=== PATIENT | male | born 1955 | race Caucasian/White ===

== ENCOUNTER → 2021-02-12 11:14 | Outpatient (CLI) | payer OTHER, SELFPAY ==
--- NOTE | ~2021-02-12 | CT_ITS ---
EXAMINATION:CT lung screening DATE: 02/12/2021 11:41 INDICATION: Personal history of tobacco dependence. Current smoker with 40 pack year history. TECHNIQUE: Computed tomography (CT) of the chest was performed without intravenous contrast. Automate d exposure control and iterative reconstruction technique were employed. The dose-length product (DLP ) was 322.62 mGy-cm. COMPARISON: CT abdomen and pelvis 07/11/2016 FINDINGS: Calcified bilateral lung nodules are consistent with old granulomatous disease. There are 3 mm and 4 mm nodules at right major fissure. There is a 2 mm nodule in left lower lobe. No pleural ef fusion. The heart size is normal. There are coronary artery calcifications. No pericardial effusion. Calcifications in the spleen are consistent with old granulomatous disease. There is a 2.4 cm mass in left adrenal gland measuring soft tissue attenuation, stable from 07/11/2016, likely an adenoma. Ther e is mild thoracic spondylosis. IMPRESSION: 1. Lung-RADS category 2: Benign appearance or behavior. Continue annual screening with noncontrast lo w-dose chest CT in 12 months. Reviewed, dictated and finalized at location A. IMPRESSION: 1. Lung-RADS category 2: Benign appearance or behavior. Continue annual screeni ng with noncontrast low-dose chest CT in 12 months.
== END ==
PROVIDERS: PCP Internal Medicine; Visit Provider Internal Medicine
DX: Z87.891 Personal history of nicotine dependence (principal)
CPT/HCPCS: 71271

== ENCOUNTER 2021-12-02 07:20 | Outpatient (RCR) | payer OTHER, SELFPAY ==
[2021-12-02] MEDS: diphenhydrAMINE HCl CAP 25 MG CAPSULE PO (08:07)
[2021-12-02] MEDS: FAMOTIDINE 20 MG TABLET PO (08:07)
[2021-12-02] MEDS: ACETAMINOPHEN 325 MG TABLET 650 MG PO (08:07)
[2021-12-02 08:10] VITALS: BP 157/56; PULSE 55; RESP 20; TEMP 36.5; O2SAT 97
[2021-12-02 09:27] VITALS: BP 160/60; PULSE 50; O2SAT 99
== END 2021-12-02 17:00 ==
LOC: AMCINF 07:20
PROVIDERS: PCP Internal Medicine; Referring Provider Internal Medicine; Visit Provider Internal Medicine Hematology & Oncology
DX: U07.1 COVID-19 (principal); I10 Essential (primary) hypertension; E11.9 Type 2 diabetes mellitus without complications
CPT/HCPCS: A9270; M0243; Q0244

== ENCOUNTER 2022-05-26 09:28 | Outpatient (CLI) | payer MEDICARE, SELFPAY ==
--- NOTE | ~2022-05-26 | CT_ITS ---
EXAMINATION: CT lung screening DATE: 05/26/2022 09:59 INDICATION: Personal history of nicotine dependence, current smoker with 45 pack year history TECHNIQUE: Computed tomography (CT) of the chest was performed without intravenous contrast. The dose -length product (DLP) was 237.90 mGy-cm. Automated exposure control and iterative reconstruction tech [employer] were employed. COMPARISON: 02/12/2021 FINDINGS: There is a stable 2 mm nodule of the right upper lobe. There are stable 3 mm and 4 mm nodul es of the right major fissure. There is a stable 3 mm nodule of the left lower lobe. Calcified pulmon éhctor nodules are consistent with old granulomatous disease. The lungs are free of acute opacities. No pleural effusion or pneumothorax. No pathologically enlarged thoracic lymph nodes are identified. The heart size is normal. Calcified coronary artery atherosclerosis is noted. A stable 2.5 cm left adren al mass likely represents an adenoma. There is mild thoracic spondylosis. IMPRESSION: 1. Lung-RADS category 2: Benign appearance or behavior. Continue annual screening with noncontrast lo w-dose chest CT in 12 months. Reviewed, dictated and finalized at location F. IMPRESSION: 1. Lung-RADS category 2: Benign appearance or behavior. Continue annual screeni ng with noncontrast low-dose chest CT in 12 months.
== END 2022-05-26 09:29 | disposition home or self-care (01) ==
PROVIDERS: PCP Internal Medicine; Visit Provider Internal Medicine
DX: Z12.2 Encounter for screening for malignant neoplasm of respiratory organs (principal); Z87.891 Personal history of nicotine dependence
CPT/HCPCS: 71271

== ENCOUNTER 2024-05-07 11:24 | Outpatient (CLI) | payer MEDICARE, SELFPAY ==
--- NOTE | ~2024-05-07 | CT_ITS ---
CT Scan of the Chest without Contrast: Clinical Indication: Lung cancer screening, nicotine dependence Technique: Contiguous sections were acquired throughout the chest without intravenous contrast. Dose reduction technique was used on this scan by utilizing automated exposure control and iterative recon struction technique. The dose-length product (DLP) was 214.05 mGy-cm. COMPARISON: 05/26/2022 Findings: There is no evidence of any significant mediastinal, hilar or axillary lymphadenopathy. Coronary katy ry calcifications are present. There is no evidence of pleural or pericardial effusion. Stable calcified granuloma superior segment right lower lobe. Images through the upper abdomen reveal stable partially imaged left adrenal nodule. Impression: Lung RADS 2: Benign appearance. 12 month follow-up screening CT advised. Reviewed, dictated and finalized at location . Impression: Lung RADS 2: Benign appearance. 12 month follow-up screening CT advised.
== END 2024-05-07 11:25 ==
LOC: MICIMG 11:25
PROVIDERS: PCP Nurse Practitioner Family; Visit Provider Nurse Practitioner Family
DX: Z12.2 Encounter for screening for malignant neoplasm of respiratory organs (principal); Z87.891 Personal history of nicotine dependence
CPT/HCPCS: 71271

== ENCOUNTER 2025-02-12 11:26 | Emergency (ER) | payer MEDICARE, SELFPAY ==
[2025-02-12 11:44] VITALS: BP 205/77; PULSE 52; RESP 16; TEMP 36.4; O2SAT 100
--- OUTSIDE RECORDS SUMMARY | 2025-02-12 13:23 | XMS_ITS | Referral Summary ---
Author Organization [facility] [address] Address [address] [place] [address] Care Team Providers Care Police Cadet Name Role Phone Unknown, Notinfile Primary Care Provider Unavail able Encounters Date Type Department Care Team Description 02/12/2025 10:45 AM CDT Office Visit [facility] at [address] [phone] Charmaine Mckeon NP Abdominal pain (Primary Dx); Abdominal mass, unspecified abdominal location; Nausea vomiting and diarrhea from Last 3 Months Allergies No known active allergies Medications metFORMIN (GLUCOPHAGE) 1,000 mg tablet Take 1 tablet (1,000 mg total) by mouth 01/06/2025 Active simvastatin (ZOCOR) 40 mg tablet Take 1 tablet (40 mg total) by mouth daily 11/06/2024 Active tamsulosin (FLOMAX) 0.4 mg extended release capsule Take 1 capsule (0.4 mg total) by mouth daily 02/05/2025 Active valsartan (DIOVAN) 320 mg tablet Take 1 tablet (320 mg total) by mouth daily 11/06/2024 Active atenoloL (TENORMIN) 50 mg tablet Take 1 tablet (50 mg total) by mouth daily 02/10/2025 Active Active Problems No known active problems Social History Tobacco Use Types Packs/Day Years Used Date Smoking Tobacco: Never Assessed Personal Safety Answer Date Recorded Getting School Help Needed Not on file 02/10 Sex and Gender Information Value Date Recorded Sex Assigned at Not on file Legal Sex Male 11:00 AM CDT Gender Identity Not on file Sexual Orientation Not on file Last Filed Vital Signs Vital Sign Reading Time Taken Comments Blood Pressure 188/84 02/12/2025 10:44 AM CDT Pulse 54 02/12/2025 10:44 AM CDT Temperature 36.6 C (97.8 F) 02/12/2025 10:44 AM CDT Respiratory Rate 24 02/12/2025 10:44 AM CDT Oxygen Saturation 98% 02/12/2025 10:44 AM CDT Inhaled Oxygen Concentration - - Weight 104.8 kg (231 lb) 02/12/2025 10:44 AM CDT Height - - Body Mass Index - - Plan of Treatment Not on file [facility] Care Teams Police Cadet Relationship Specialty Start Date End Date Unknown, Notinfile PCP - General 02/12/25
--- OUTSIDE RECORDS SUMMARY | 2025-02-12 13:23 | XMS_ITS | Clinical Summary ---
Author Organization [facility] [address] Address [address] [place] [address] Care Team Providers Care Identification Clerk Name Role Phone Unknown, Notinfile Primary Care Provider Unavail able Allergies No known active allergies Medications metFORMIN [...] Active Active Problems No known active problems Encounters Date Type Department Care Team Description 02/12/2025 10:45 AM CDT Office Visit [facility] at [address] [phone] Charmaine Mckeon NP Abdominal pain (Primary Dx); Abdominal mass, unspecified abdominal location; Nausea vomiting and diarrhea from Last 3 Months Social History Tobacco Use Types Packs/Day Years [...] Mass Index - - Plan of Treatment Health Maintenance Due Date Last Done Comments Colon Cancer Screening-Colonoscopy 1956 Depression Screening 1956 Fall Risk Assessment 1956 Hepatitis C Screening 1956 Prostate Cancer Screening-PSA 1956 Hepatitis B Screening 1974 Abdominal Aortic Aneurysm (A AA) Screen 2021 Well Visit 65+ 2021 Pneumococcal vaccine 65+ (2 of 2 - PCV) 04/05/2024 04/05/2023 Influenza Vaccine (#1) 2024 0, 08/21/2019, 08/22/2018, Additional history exists DTaP/Tdap/Td Vaccine (2 - Td or Tdap) 04/23/2034 04/23/2024 Zoster Vaccine Completed 04/07/2022, 02/08/2022 Insurance [facility] Care Teams Identification Clerk Relationship Specialty Start Date End Date Unknown, Notinfile PCP - General 02/12/25
--- OUTSIDE RECORDS SUMMARY | 2025-02-12 13:23 | XMS_ITS | Encounter Summary ---
Author Organization [facility] Address [address] [place] [address] Care Team Providers Care Assessment Clinician Name Role Phone Unknown, Notinfile Primary Care Provider Unavail able Reason for Visit * Reason Comments Vomiting Reports he can't eat without vomiting, abdominal pain across lower abdomen, nausea, x 6 weeks. Reports he stopped his jardiance 2 months ago Encounter Details Date Type Department Care Team (Late st Contact Info) Description 02/12/2025 10:45 AM CDT Office Visit [facility] at [place] [id number] [place] [phone] Charmaine Mckeon NP [address] [place] [address] [address] [place], [place] [id number] Abdominal pain (Primary Dx); Abdominal mass, unspecified abdominal location; Nausea vomiting and diarrhea Social History Tobacco Use Types Packs/Day Years Used Date Smoking Tobacco: Never Assessed Personal Safety Answer Date Recorded Getting School Help Needed Not on file 02/10 Sex and Gender Information Value Date Recorded Sex Assigned at Not on file Legal Sex Male 11:00 AM CDT Gender Identity Not on file Sexual Orientation Not on file documented as of this encounter Last Filed Vital Signs Vital Sign Reading [...] - - Body Mass Index - - documented in this encounter Patient Instructions * Patient Instructions* Charmaine Mckeon NP - 02/12/2025 10:45 AM CDT Patient presented today with complaints of abdominal pain and right low back pain x 2 weeks. Patient reports he has not been keeping down food or fluids x 2 weeks. Has had decreased bowel movements and urination. Patient has a palpable mass to the lower mid abdomen. History of hernia repair 5 yearsago. documented in this encounter Plan of Treatment Not on file documented as of this encounter Visit Diagnoses Diagnosis Abdominal pain- Primary Abdominal pain, unspecified site Abdominal mass, unspecified abdominal location Nausea vomiting and diarrhea documented in this encounter Historical Medications * This list may reflect changes made after this encounter. atenoloL (TENORMIN) 50 mg tablet Take 1 tablet (50 mg total) by mouth daily 02/10/2025 valsartan (DIOVAN) 320 mg tablet Take 1 tablet (320 mg total) by mouth daily 11/06/2024 tamsulosin (FLOMAX) 0.4 mg extended release capsule Take 1 capsule (0.4 mg total) by mouth daily 02/05/2025 simvastatin (ZOCOR) 40 mg tablet Take 1 tablet (40 mg total) by mouth daily 11/06/2024 metFORMIN (GLUCOPHAGE) 1,000 mg tablet Take 1 tablet (1,000 mg total) by mouth 01/06/2025 added in this encounter Care Teams Assessment Clinician Relationship Specialty Start Date End Date Unknown, Notinfile PCP - General 02/12/25 documented as of this encounter
[2025-02-12 13:26] LABS: Basophils Percent Auto 0.4 % (0.2-1.2); Eosinophils Absolute Auto 0.1 K/mm3 (0-0.3); Eosinophils Percent Auto 1.4 % (0-4.4); Hematocrit 33.9 % (42.0-52.0); Hemoglobin 11.1 g/dL (14.0-18.0); Immature Granulocyte Absolute 0.04 K/mm3 (0.00-0.031); Immature Granulocyte Percent A 0.4 % (0-0.5); Lymphocytes Absolute Auto 0.79 K/mm3 (0.9-3.2); Lymphocytes Percent Auto 7.9 % (18.3-44.2); Mean Corpuscular HGB Conc 32.7 g/dl (32-36); Mean Corpuscular Hemoglobin 31.7 pg (26-34); Mean Corpuscular Volume 96.9 fl (80-100); Mean Platelet Volume 10.7 fl (7.4-10.4); Monocytes Absolute Auto 0.6 K/mm3 (0.1-0.6); Monocytes Percent Auto 6.3 % (2.6-8.5); Neutrophils Absolute Auto 8.4 K/mm3 (1.3-6.7); Neutrophils Percent Auto 83.6 % (45.5-73.1); Platelet Count Result 282 k/mm3 (150-375); White Blood Count 10.1 K/mm3 (4.5-10.0)
[2025-02-12 13:42] LABS: Add Urine Microscopic? YES; Alanine Aminotransferase 21 U/L (6-50); Albumin Level 3.9 g/dL (3.5-5.1); Alkaline Phosphatase 65 U/L (38-126); Anion Gap 13 mmol/L (4-12); Appearance Urine Clear (Clear); Aspartate Amino Transferase 24 U/L (17-59); Bacteria Urine None Seen /hpf; Bilirubin Urine Negative (Negative); Bilirubin,Total 0.3 mg/dL (0.2-1.3); Blood Urea Nitrogen 110 mg/dL (9-20); Blood Urine Negative (Negative); Calcium 9.2 mg/dL (8.4-10.2); Carbon Dioxide 19 mmol/L (22-30); Chloride 106 mmol/L (98-107); Color Urine Yellow (Yellow); Estimated CRCL calculation 9 ml/min; Estimated Glomerular Filt Rate 6; Glucose 126 mg/dL (65-110); Glucose Urine UA Negative (Negative); Ketones Urine Negative (Negative); Leukocyte Esterase Ur Negative LEU/UL (Negative); Lipase 87 U/L (23-300); Nitrate Urine Negative (Negative); Non Pathogenic Casts 0-2; Potassium 5.7 mmol/L (3.4-5.0); Protein Urine Trace mg/dL (Negative); RBC Urine 0-2 /hpf (0-2); Sodium 138 mmol/L (137-145); Specific Grav Ur 1.009 (1.001-1.035); Squamous Epithelial Cell Urine None Seen /hpf (Few); Urobilinogen Urine 0.2 mg/dL (<2.0); WBC Urine 0-5 /hpf (0-3)
[2025-02-12 14:30] VITALS: RESP 18; O2SAT 96
--- OUTSIDE RECORDS SUMMARY | 2025-02-12 17:27 | XMS_ITS | Clinical Summary ---
Author Organization [facility] [address] Address [address] [place] [address] Care Team Providers Care Health Services Rn Name Role Phone Unknown, Notinfile Primary Care [...] Description 02/12/2025 10:45 AM CDT Office Visit [facility] at [address] [phone] Charmaine Mckeon NP Abdominal pain (Primary Dx); Abdominal mass, unspecified abdominal location; Nausea vomiting and diarrhea from Last 3 Months Social History Tobacco Use Types Packs/Day Years Used Date Smoking Tobacco: Never Assessed Sex and Gender Information Value Date Recorded [...] PCV) 04/05/2024 04/05/2023 Influenza Vaccine (#1) 2024 , 08/21/2019, 08/22/2018, Additional history exists DTaP/Tdap/Td Vaccine (2 - Td or Tdap) 04/23/2034 04/23/2024 Zoster Vaccine Completed 04/07/2022, 02/08/2022 Insurance [facility] [employer] Care Teams Health Services Rn Relationship Specialty Start Date End Date Unknown, Notinfile PCP - General 02/12/25
--- OUTSIDE RECORDS SUMMARY | 2025-02-12 17:27 | XMS_ITS | Encounter Summary ---
Author Organization [facility] Address [address] [place] [address] Care Team Providers Care Executive Search Consultant Name Role Phone Unknown, Notinfile Primary Care Provider Unavail able Reason for Visit * Reason Comments Vomiting Reports he can't eat without vomiting, abdominal pain across lower abdomen, nausea, x 6 weeks. Reports he stopped his jardiance 2 months ago Encounter Details Date Type Department Care Team (Late st Contact Info) Description 02/12/2025 10:45 AM CDT Office Visit [facility] at [place] [address] [place] [phone] Charmaine Mckeon EMPLOYMENT CASE MANAGER [address] [place] [address] [address] [place], [place] [phone] Abdominal pain (Primary Dx); Abdominal mass, unspecified [...] 01/06/2025 added in this encounter Care Teams Executive Search Consultant Relationship Specialty Start Date End Date Unknown, Notinfile PCP - General 02/12/25 documented as of this encounter
--- OUTSIDE RECORDS SUMMARY | 2025-02-12 17:27 | XMS_ITS | Referral Summary ---
Author Organization [facility] [address] Address [address] [place] [address] Care Team Providers Care University Dean Name Role Phone Unknown, Notinfile Primary Care Provider Unavail able Encounters Date Type Department Care Team Description 02/12/2025 10:45 AM CDT Office Visit [facility] at [address] [phone] Charmaine Mckeon NP Abdominal pain [...] Plan of Treatment Not on file Insurance [facility] [employer] Care Teams University Dean Relationship Specialty Start Date End Date Unknown, Notinfile PCP - General 02/12/25
--- NOTE | 2025-02-12 17:37 | ED.GENADULT ---
HPI - General Adult General Chief complaint: Unspecified Stated complaint: NON SPECIFIC Time Seen by Provider: 02/12/25 16:42 History of Present Illness HPI narrative: Patient eloped from the emergency department. Related Data Home Medications ?Medication ?Instructions ?Recorded ?Confirmed ?Last Taken ?Type aspirin 325 mg tablet 325 mg PO ONCE 01/07/20 11/04/24 Unknown History Allergies Allergy/AdvReac Type Severity Reaction Status Date / Time No Known Allergies Allergy Verified 11/04/24 09:19 [facility] Past Medical History Medical History Benign paroxysmal positional vertigo Diabetes mellitus Elevated glucose Elevated PSA Essential (primary) hypertension (06/24/19) Hyperlipidemia Hypotension Surgical History Surgical History H/O hand surgery H/O inguinal hernia repair Family History Family History Mother Patient's mother is in good health Sibling Family history of diabetes mellitus in first degree relative Diabetes mellitus Father Family history of heart disease in male family member before age 55 Family history of cardiovascular disease Other Hypertension Social History Social History Smoking packs per day: 1 Smoking cigarettes per day: 20.0 Smoking status: Current every day smoker (no interest in quitting) Tobacco type: cigarettes Second hand tobacco smoke exposure: Yes Alcohol intake: current Alcohol use details: social Substance use: never Substance use type: does not use Do You Feel Safe in your Home?: Yes Lack of Transportation: No Lack of Food: Never True Current Housing: I Have Housing Concerned About Future Housing: No Difficulty Paying Gas/Electric Bills: No Difficulty Paying for Meds: No Currently Unemployed: No Education: Master's Degree or Higher Difficulty w/ Childcare or Family Care: No Living arrangements: alone Occupation/Education: retired Gender identity (if verbalized by the patient): Male Spiritual care concerns: No Agree to blood products: Yes Course Vital Signs Vital signs: Vital Signs Temperature 97.6 F 02/12/25 11:44 Pulse Rate 52 L 02/12/25 11:44 Respiratory Rate 16 02/12/25 11:44 Blood Pressure 205/77 H 02/12/25 11:44 Pulse Oximetry 100 02/12/25 11:44 Oxygen Delivery Room Air 02/12/25 11:44 Temperature 97.6 F 02/12/25 11:44 Pulse Rate 52 L 02/12/25 11:44 Respiratory Rate 18 02/12/25 14:30 Blood Pressure 205/77 H 02/12/25 11:44 Pulse Oximetry 96 02/12/25 14:30 Oxygen Delivery Room Air 02/12/25 11:44 Medical Decision Making Vital Signs Vital Signs: Vital Signs Temperature 97.6 F 02/12/25 11:44 Pulse Rate 52 L 02/12/25 11:44 Respiratory Rate 16 02/12/25 11:44 Blood Pressure 205/77 H 02/12/25 11:44 Pulse Oximetry 100 02/12/25 11:44 Oxygen Delivery Room Air 02/12/25 11:44 Temperature 97.6 F 02/12/25 11:44 Pulse Rate 52 L 02/12/25 11:44 Respiratory Rate 18 02/12/25 14:30 Blood Pressure 205/77 H 02/12/25 11:44 Pulse Oximetry 96 02/12/25 14:30 Oxygen Delivery Room Air 02/12/25 11:44 Lab Data 02/12/25 13:14 02/12/25 13:14 Labs: Lab Results 02/12/25 Range/Units 13:14 WBC 10.1 H (4.5-10.0) K/mm3 RBC 3.50 L (4.6-6.20) M/mm3 Hgb 11.1 L (14.0-18.0) g/dL Hct 33.9 L (42.0-52.0) % MCV 96.9 (80-100) fl MCH 31.7 (26-34) pg MCHC 32.7 (32-36) g/dl RDW 15.0 H (11.5-14.5) % Plt Count 282 (150-375) k/mm3 MPV 10.7 H (7.4-10.4) fl Immature Gran % (Auto) 0.4 (0-0.5) % Neut % (Auto) 83.6 H (45.5-73.1) % Lymph % (Auto) 7.9 L (18.3-44.2) % Garfield % (Auto) 6.3 (2.6-8.5) % Eos % (Auto) 1.4 (0-4.4) % Baso % (Auto) 0.4 (0.2-1.2) % Lymph # (Auto) 0.79 L (0.9-3.2) K/mm3 Garfield # (Auto) 0.6 (0.1-0.6) K/mm3 Eos # (Auto) 0.1 (0-0.3) K/mm3 Baso # (Auto) 0.0 (0.0-0.1) K/mm3 Abs Immat Gran (auto) 0.04 H (0.00-0.031) K/mm3 Absolute Neuts (auto) 8.4 H (1.3-6.7) K/mm3 Absolute Nucleated RBC 0.000 (0.0-0.012) K/mm3 Nucleated RBC % 0.0 (0.0-0.2) % Sodium 138 (137-145) mmol/L Potassium 5.7 H (3.4-5.0) mmol/L Chloride 106 (98-107) mmol/L Carbon Dioxide 19 L (22-30) mmol/L Anion Gap 13 H (4-12) mmol/L BUN 110 H (9-20) mg/dL Creatinine 8.71 H (0.7-1.3) mg/dL Estim Creat Clear Calc 9 ml/min Estimated GFR 6 L (59 - ) Glucose 126 H (65-110) mg/dL Calcium 9.2 (8.4-10.2) mg/dL Total Bilirubin 0.3 (0.2-1.3) mg/dL AST 24 (17-59) U/L ALT 21 (6-50) U/L Alkaline Phosphatase 65 (38-126) U/L Total Protein 7.0 (6.3-8.2) g/dL Albumin 3.9 (3.5-5.1) g/dL Lipase 87 (23-300) U/L Urine Color Yellow (Yellow) Urine Appearance Clear (Clear) Urine pH 6.0 (5.0-9.0) Ur Specific Brandon 1.009 (1.001-1.035) Urine Protein Trace (Negative) mg/dL Urine Glucose (UA) Negative (Negative) mg/dL Urine Ketones Negative (Negative) mg/dL Ur Blood (Man) Negative (Negative) Urine Nitrate Negative (Negative) Urine Bilirubin Negative (Negative) Urine Urobilinogen 0.2 (<2.0) mg/dL Leukocyte Esterase Rfl Negative (Negative) DAPHNE/UL Urine RBC 0-2 (0-2) /hpf Urine WBC 0-5 (0-3) /hpf Ur Squamous Epith Cells None seen (Few) /hpf Urine Bacteria None seen /hpf Urine Casts 0-2 Discharge Plan Discharge Clinical Impression: Acute kidney injury Patient Disposition: Other Condition: Serious Instructions: Antibiotic Form Additional Instructions: Patient eloped from the emergency department Patient Language: Portuguese Prescriptions: No Action aspirin 325 mg tablet 325 mg PO ONCE mupirocin 2 % ointment 1 applic topical BID Qty: 22 0RF (DME) lancets [Accu-Chek Fastclix Lancet Drum] Misc See Rx Instructions .ROUTE .MEDSUPPLY Qty: 100 0RF Rx Instructions: USE ONE STRIP TO CHECK BLOOD GLUSOCE Mounjaro 5 mg/0.5 mL pen injector See Rx Instructions .ROUTE .COMPLEX Qty: 2 5RF Dose Instruction: ADMINISTER 5 MG UNDER THE SKIN WEEKLY Rx Instructions: ADMINISTER 5 MG UNDER THE SKIN WEEKLY valsartan 320 mg tablet See Rx Instructions .ROUTE .COMPLEX Qty: 100 0RF Dose Instruction: TAKE 1 TABLET BY MOUTH DAILY Rx Instructions: TAKE 1 TABLET BY MOUTH DAILY simvastatin 40 mg tablet See Rx Instructions .ROUTE .COMPLEX Qty: 100 0RF Dose Instruction: TAKE 1 TABLET BY MOUTH DAILY Rx Instructions: TAKE 1 TABLET BY MOUTH DAILY tamsulosin 0.4 mg capsule See Rx Instructions .ROUTE .COMPLEX Qty: 90 1RF Dose Instruction: TAKE 1 CAPSULE BY MOUTH DAILY Rx Instructions: TAKE 1 CAPSULE BY MOUTH DAILY metformin 1,000 mg tablet See Rx Instructions .ROUTE .COMPLEX Qty: 200 0RF Dose Instruction: TAKE 1 TABLET BY MOUTH TWICE DAILY WITH MEALS Rx Instructions: TAKE 1 TABLET BY MOUTH TWICE DAILY WITH MEALS Jardiance 25 mg tablet 25 mg PO DAILY Qty: 90 1RF atenolol 50 mg tablet See Rx Instructions .ROUTE .COMPLEX Qty: 90 0RF Dose Instruction: TAKE 1 TABLET BY MOUTH EVERY DAY Rx Instructions: TAKE 1 TABLET BY MOUTH EVERY DAY Follow-up/Referrals: Ana Blake APRN [Primary Care Provider] -
--- NOTE | 2025-02-12 17:41 | PC.NURSE ---
Pt not found in room 12, pt not in CT or bathroom. Pt did not return to room 12.
== END 2025-02-12 17:44 | disposition left against medical advice (07) ==
PROVIDERS: Emergency Provider Emergency Medicine; PCP Nurse Practitioner Family
DX: N17.9 Acute kidney failure, unspecified (principal); E11.9 Type 2 diabetes mellitus without complications; I10 Essential (primary) hypertension; E78.5 Hyperlipidemia, unspecified; F17.210 Nicotine dependence, cigarettes, uncomplicated; Z79.82 Long term (current) use of aspirin; Z79.899 Other long term (current) drug therapy; Z79.84 Long term (current) use of oral hypoglycemic drugs; Z79.85 Long-term (current) use of injectable non-insulin antidiabetic drugs
CPT/HCPCS: 36415; 80053; 81001; 83690; 85025; 96360; 99283